=== PATIENT | male | born 1950 | race Caucasian/White ===

== ENCOUNTER 2017-10-24 12:28 | Emergency (ER) | payer MEDICARE ==
[2017-10-24 12:48] LABS: ADD MAN DIFF? NO
[2017-10-24 12:50] LABS: BASOPHIL # 0.1 10^3/ul (0.0-0.1); BASOPHILS % 0.8 % (0.0-2.0); EOSINOPHILS # 0.2 10^3/ul (0.0-0.5); HEMATOCRIT 47.3 % (42.0-52.0); HEMOGLOBIN 15.9 g/dl (14.0-18.0); LYMPHOCYTES # 1.8 10^3/ul (0.8-2.9); LYMPHOCYTES % 29.8 % (15.0-51.0); MEAN CORPUSCULAR HEMOGLOBIN 30.5 pg (29.0-33.0); MEAN CORPUSCULAR HGB CONC 33.6 g/dl (32.0-37.0); MEAN CORPUSCULAR VOLUME 90.6 fl (82.0-101.0); MEAN PLATELET VOLUME 8.7 fl (7.4-10.4); MONOCYTE # 0.7 10^3/ul (0.3-0.9); MONOCYTES % 11.6 % (0.0-11.0); NEUTROPHIL # 3.2 10^3/ul (1.6-7.5); NEUTROPHILS % 53.3 % (39.0-77.0); PLATELET COUNT 203 10^3/UL (140-415); RED BLOOD COUNT 5.22 10^6/ul (4.70-6.10); RED CELL DISTRIBUTION WIDTH 13.4 % (11.5-14.5)
[2017-10-24 13:07] LABS: INR 0.94; PROTIME 12.7 Sec (11.9-14.9)
[2017-10-24 13:08] LABS: ANION GAP 13 (8-16); BLOOD UREA NITROGEN 17 mg/dl (7-20); CALCIUM 8.9 mg/dl (8.4-10.2); CARBON DIOXIDE 27 mmol/L (21-31); CHLORIDE 107 mmol/L (97-110); CHOLESTEROL 223 mg/dl (100-200); CREATININE 1.01 mg/dl (0.61-1.24); GLUCOSE 106 mg/dl (70-220); HDL CHOLESTEROL 72 mg/dl (30-78); LDL CHOLESTEROL,CALCULATED 120 mg/dl; PARTIAL THROMBOPLASTIN TIME 34.9 Sec (25.0-35.0); SODIUM 143 mmol/L (135-144); TRIGLYCERIDES 154 mg/dl (0-149)
[2017-10-24 13:10] LABS: HEMOGLOBIN A1C 5.3 % (0-5.9)
[2017-10-24 13:21] LABS: TROPONIN-I < 0.012 ng/ml (0.00-0.12)
[2017-10-24] MEDS ORDERED: ASPIRIN 81 MG TAB (15:23)
[2017-10-24] MEDS: ASPIRIN 81 MG TAB PO (15:37)
== END 2017-10-24 15:38 | disposition left against medical advice (07) ==
LOC: E/R 12:28
DX: G83.24 Monoplegia of upper limb affecting left nondominant side (principal); I10 Essential (primary) hypertension; R40.2142 Coma scale, eyes open, spontaneous, at arrival to emergency department; R40.2362 Coma scale, best motor response, obeys commands, at arrival to emergency department; Z79.82 Long term (current) use of aspirin
CPT/HCPCS: 29125; 36415; 70450; 71045; 80048; 80061; 83036; 84484; 85025; 85610; 85730; 93005; 99291-25